=== PATIENT | female | born 1990 | race American Indian/Alaskan Native ===

== ENCOUNTER 2017-12-02 22:31 | Emergency (ER) | payer OTHER ==
[2017-12-02 22:56] VITALS: BP 117/68
[2017-12-02] MEDS ORDERED: TYLENOL ONE (22:58)
[2017-12-02] MEDS ORDERED: TYLENOL PO ONE (22:59)
== END 2017-12-02 23:00 | disposition left against medical advice (07) ==
LOC: ED 22:31
DX: J02.9 Acute pharyngitis, unspecified (principal); H92.01 Otalgia, right ear; Z53.21 Procedure and treatment not carried out due to patient leaving prior to being seen by health care provider
CPT/HCPCS: 87116; 87430

== ENCOUNTER 2018-09-10 08:14 | Emergency (ER) | payer MEDICAID ==
[2018-09-10 08:33] VITALS: BP 127/74
--- NOTE | 2018-09-10 09:18 | Emergency Department Report ---
ED General Adult HPI - General Chief complaint: Dyspnea/Respdistress Stated complaint: 10WKS /SOB/BOTH L R SIDE PAIN Time Seen by Provider: 09/10/18 09:12 Source: patient Mode of arrival: Ambulatory Limitations: No Limitations - History of Present Illness Initial comments: Patient is a 27-year-old asthmatic female who is presenting with bilateral lower back crampiness. Patient states that it feels like a charley horse". Patient is 10 weeks has a history of low potassium and should be on potassium replacement however she's been noncompliant. Patient denies any dysuria or urinary frequency vaginal bleeding or vaginal discharge. Patient states that her lower abdominal and lower back crampiness worse when moving. States that sh pj does have some discomfort in the lower back which she takes a deep breath as well. Patient states that at its most severe is 10 out of 10 and it feels as though her muscles in the lower back are andreina all at once. States that she has some pain at the arch of the right foot however there is no pain in the calf or thigh at this time. - Related Data Previous Rx's Medication Instructions Recorded Last Taken Type Nitrofurantoin [place]/M-Cryst 100 mg PO Q12HR #14 capsule 09/10/18 Unknown Rx [Macrobid CAP] Allergies Allergy/AdvReac Type Severity Reaction Status Date / Time No Known Allergies Allergy Verified 09/10/18 08:30 ED Review of Systems ROS: Stated complaint: 10WKS /SOB/BOTH L R SIDE PAIN Other details as noted in HPI Comment: All other systems reviewed and negative ED Past Medical Hx - Past Medical History Previous Medical History?: Yes Additional medical history: iron deficiency anemia - Surgical History Past Surgical History?: Yes Additional Surgical History: c section x 3 - Social History Smoking Status: Never Smoker Substance Use Type: None - Medications Home Medications: Home Medications Medication Instructions Recorded Confirmed Last Taken Type Nitrofurantoin [place]/M-Cryst 100 mg PO Q12HR #14 capsule 09/10/18 Unknown Rx [Macrobid CAP] ED Physical Exam - General Limitations: No Limitations General appearance: alert, in no apparent distress - Head Head exam: Present: atraumatic, normocephalic - Eye Eye exam: Present: normal appearance - ENT ENT exam: Present: mucous membranes moist - Neck Neck exam: Present: normal inspection - Respiratory Respiratory exam: Present: normal lung sounds bilaterally. Absent: respiratory distress, wheezes, rales, rhonchi - Cardiovascular Cardiovascular Exam: Present: regular rate, normal rhythm. Absent: systolic murmur, diastolic murmur, rubs, gallop - GI/Abdominal GI/Abdominal exam: Present: soft, normal bowel sounds. Absent: distended, tenderness, guarding, rebound - Extremities Exam Extremities exam: Present: normal inspection, full ROM, normal capillary refill. Absent: tenderness, calf tenderness - Back Exam Back exam: Present: normal inspection - Neurological Exam Neurological exam: Present: alert, oriented X3 - Psychiatric Psychiatric exam: Present: normal affect, normal mood - Skin Skin exam: Present: warm, dry, intact, normal color. Absent: rash ED Course Vital Signs 09/10/18 08:30 Temperature 97.8 F Pulse Rate 94 H Respiratory 18 Rate Blood Pressure 127/74 O2 Sat by Pulse 99 Oximetry ED Medical Decision Making - Lab Data Result diagrams: 09/10/18 09:26 Lab Results 09/10/18 09/10/18 Range/Units 09:26 10:23 Sodium 138 (137-145) mmol/L Potassium 4.2 (3.6-5.0) mmol/L Chloride 98.6 (98-107) mmol/L Carbon Dioxide 25 (22-30) mmol/L Anion Gap 19 mmol/L BUN 16 (7-17) mg/dL Creatinine 0.6 L (0.7-1.2) mg/dL Estimated GFR > 60 ml/min BUN/Creatinine Ratio 27 % Glucose 93 (65-100) mg/dL Calcium 9.9 (8.4-10.2) mg/dL Magnesium 1.70 (1.7-2.3) mg/dL Urine Color Yellow (Yellow) Urine Turbidity Slightly-cloudy (Clear) Urine pH 5.0 (5.0-7.0) Ur Specific [place] 1.031 H (1.003-1.030) Urine Protein 30 mg/dl (Negative) mg/dL Urine Glucose (UA) Neg (Negative) mg/dL Urine Ketones 80 (Negative) mg/dL Urine Blood Neg (Negative) Urine Nitrite Neg (Negative) Urine Bilirubin Neg (Negative) Urine Urobilinogen 2.0 (<2.0) mg/dL Ur Leukocyte Esterase Lg (Negative) Urine WBC (Auto) 46.0 H (0.0-6.0) /HPF Urine RBC (Auto) 12.0 (0.0-6.0) /HPF U Epithel Cells (Auto) 5.0 (0-13.0) /HPF Urine Mucus 3+ /HPF Urine Yeast (Budding) 1+ /HPF - Medical Decision Making Patient's potassium was within normal limits. Patient does however have a u rinary tract infection be treated with Macrobid. Patient discharged home. Critical care attestation.: If time is entered above; I have spent that time in minutes in the direct care of this critically ill patient, excluding procedure time. ED Disposition Clinical Impression: UTI in Qualifiers: Trimester: first trimester Qualified Code(s): O23.41 - Unspecified infection of urinary tract in , first trimester Disposition: DC- TO HOME OR SELFCARE Is pt being admited?: No Does the pt Need Aspirin: No Condition: Stable Instructions: Urinary Tract Infection in Women (ED) Time of Disposition: 10:49
[2018-09-10 09:53] LABS: BUN/Creatinine Ratio 27; Blood Urea Nitrogen 16 mg/dL (7-17); Calcium 9.9 mg/dL (8.4-10.2); Hemolysis Index 0
[2018-09-10 10:36] LABS: Bilirubin,Urine NEG (Negative); Blood,Urine NEG (Negative); Color,Urine Yellow (Yellow); Mucus,Urine 3+ /HPF
[2018-09-10] MEDS ORDERED: MACROBID PO ONE (10:49)
== END 2018-09-10 11:00 | disposition home or self-care (01) ==
LOC: ED 08:14
DX: O23.41 Unspecified infection of urinary tract in pregnancy, first trimester (principal); Z3A.10 10 weeks gestation of pregnancy
CPT/HCPCS: 36415; 80048; 81001; 83735; 99283

== ENCOUNTER 2018-09-13 11:22 | Emergency (ER) | payer MEDICAID ==
--- NOTE | 2018-09-13 11:27 | Emergency Department Report ---
Blank Doc - Documentation Documentation: This is a 27-year-old female that presents with left foot pain s/p rock kenia montano. Unsure of any injuries. This initial assessment/diagnostic orders/clinical plan/treatment(s) is/are subject to change based on patient's health status, clinical progression and re- assessment by fellow clinical providers in the ED. Further treatment and workup at subsequent clinical providers discretion. Patient/guardians urged not to elope from the ED as their condition may be serious if not clinically assessed and managed. Initial orders include: 1- Patient sent to [facility] for further evaluation and treatment 2- xray
[2018-09-13] MEDS ORDERED: IBUPROFEN PO ONE (12:11)
--- NOTE | 2018-09-13 12:21 | Emergency Department Report ---
HPI - General Chief Complaint: Extremity Injury, Lower Time Seen by Provider: 09/13/18 11:26 - HPI HPI: 27-year-old -N[place]alese female presents to the emergency department with a few days of pain to the top and outside of her left foot. She denies any trauma or injury. The pain worsens when she is bearing weight and ambulating. She denies any swelling, skin color change, rash or lesions. She has not taken anything for her symptoms prior to presentation. She has a past medical history of anemia. ED Past Medical Hx - Past Medical History Previous Medical History?: Yes Additional medical history: iron deficiency anemia - Surgical History Past Surgical History?: Yes Additional Surgical History: c section x 3 - Social History Smoking Status: Never Smoker - Medications Home Medications: Home Medications Medication Instructions Recorded Confirmed Last Taken Type Nitrofurantoin [place]/M-Cryst 100 mg PO Q12HR #14 capsule 09/10/18 Unknown Rx [Macrobid CAP] ED Review of Systems ROS: Stated complaint: (L) LEFT FOOT PAIN Other details as noted in HPI Comment: All other systems reviewed and negative Cardiovascular: denies: edema Musculoskeletal: arthralgia. denies: joint swelling Skin: denies: rash, lesions Neurological: denies: numbness, paresthesias Physical Exam - Physical Exam Vital Signs: Vital Signs 09/13/18 11:26 Temperature 97.6 F Pulse Rate 104 H Respiratory 18 Rate Blood Pressure 127/83 O2 Sat by Pulse 100 Oximetry Physical Exam: GENERAL: The patient is well-developed well-nourished. HENT: Normocephalic. Atraumatic. Patient has moist mucous membranes. EYES: Extraocular motions are intact. NECK: Supple. Trachea is midline. CHEST/LUNGS: Clear to auscultation. There is no respiratory distress noted. HEART/CARDIOVASCULAR: Regular. There is no tachycardia. There is no murmur. ABDOMEN: There is no abdominal distention. SKIN: Skin is warm and dry. NEURO: The patient is awake, alert, and oriented. The patient is cooperative. The patient has normal speech. MUSCULOSKELETAL: There is some tenderness to palpation to the left lateral and dorsal foot. No obvious deformity. +2 over 4 dorsalis pedis pulse to the affected left foot. There is no limitation range of motion. ED Course Vital Signs 09/13/18 11:26 Temperature 97.6 F Pulse Rate 104 H Respiratory 18 Rate Blood Pressure 127/83 O2 Sat by Pulse 100 Oximetry ED Medical Decision Making - Radiology Data Radiology results: image reviewed interpreted by me: X-ray of the left foot does not show any fracture, dislocation, or any acute process. - Medical Decision Making This patient presents to the emergency department with a complaint of some atraumatic left foot pain. X-ray does not show any fracture, dislocation or any other acute process. She appears neurovascularly intact. There is no swelling or skin color change. It appears low suspicion for any cellulitis or gout. It is possible that she has some level of tendinitis or repetitive stress injury. She was given a postop shoe and some crutches and will try to be nonweightbearing for a few days. She will use rest, ice, compression and elevation. She was given some referrals for local loss control consultant. She will return to the ER with any worsening of her symptoms or any acute distress. - Differential Diagnosis tendinitis, gout, occult fracture Critical Care Time: No Critical care attestation.: If time is entered above; I have spent that time in minutes in the direct care of this critically ill patient, excluding procedure time. ED Disposition Clinical Impression: Left foot pain Disposition: DC-01 TO HOME OR SELFCARE Is pt being admited?: No Condition: Stable Instructions: Arthralgia (ED) Additional Instructions: Please follow-up with your primary care physician. I am giving you a referral for two different local podiatrists/foot doctors to follow up regarding your left foot pain. Return to the emergency Department with any worsening of your symptoms or any acute distress. Referrals: ALDA VALENZUELA MD [Staff Physician] - 3-5 Days JOYCE WALKER DPM [Staff Physician] - 3-5 Days
[2018-09-13 13:30] VITALS: BP 121/78
--- NOTE | 2018-09-13 13:57 | XRay Report ---
LEFT FOOT, 3 views: History: Foot pain. The bony architecture is intact. Bony alignment is normal. No soft tissue abnormalities are seen. The joint spaces appear preserved. IMPRESSION: Unremarkable left foot.
== END 2018-09-13 13:16 | disposition home or self-care (01) ==
LOC: ED 11:22
DX: M79.672 Pain in left foot (principal)

== ENCOUNTER 2020-06-29 09:44 | Emergency (ER) | payer MEDICAID, OTHER ==
--- NOTE | 2020-06-29 10:27 | Event Note ---
ED Screening Note Date of service: 06/29/20 Time: 10:21 ED Screening Note: Patient complains of chest pain, abdominal pain, nausea and vomiting since last night Patient states she was diagnosed with ectopic yesterday at [facility] and given " a pill" and told to follow-up with [facility] here This initial assessment/diagnostic orders/clinical plan/treatment(s) is/are subject to change based on patients health status, clinical progression and re- assessment by fellow clinical providers in the ED. Further treatment and workup at subsequent clinical providers discretion. Patient/guardian urged not to elope from the ED as their condition may be serious if not clinically assessed and managed. Initial orders include: Labs EKG Chest x-ray
--- NOTE | 2020-06-29 11:21 | Ultrasound Report ---
ULTRASOUND OBSTETRIC INDICATION / CLINICAL INFORMATION: abdominal pain, ectopic , given methotrex. Clinical Gestational Age (GA): 11.5 weeks.days TECHNIQUE: Transabdominal. COMPARISON: None available. FINDINGS: UTERUS: Measures 10.0 x 3.7 x 5.2 cm with 8 mm endometrial thickness in this premenopausal patient. N o intrauterine gestation is identified. Otherwise satisfactory appearance. ADNEXA: 1.5 cm cystic focus at the left ovary. Right ovary demonstrates no significant abnormality. FREE FLUID: None. ADDITIONAL FINDINGS: None. IMPRESSION: 1. No intrauterine gestation identified. 1.5 cm cystic focus at the left ovary. Recommend correlation with beta hCG and further follow-up/evaluation as warranted. 2. No pelvic free fluid. Signer Name: Nathanael Harden MD Signed: 06/29/2020 11:16 AM Workstation Name: [id number]
[2020-06-29 11:32] LABS: Basophils % (Auto) 0.5 % (0.0-1.8); Eosinophils % (Auto) 0.1 % (0.0-4.3); Hematocrit 39.1 % (30.3-42.9); Lymphocytes # (Auto) 0.6 K/mm3 (1.2-5.4); Lymphocytes % (Auto) 7.3 % (13.4-35.0); Mean Corpuscular HGB Conc 33 % (30-34); Mean Corpuscular Volume 83 fl (79-97); Monocytes # (Auto) 0.2 K/mm3 (0.0-0.8); Monocytes % (Auto) 2.6 % (0.0-7.3); Platelet Count 294 K/mm3 (140-440); Red Blood Count 4.72 M/mm3 (3.65-5.03); Red Cell Distribution Width 15.5 % (13.2-15.2)
[2020-06-29] MEDS ORDERED: ONDANSETRON 4 MG/2 ML INJ IV ONE (11:55)
[2020-06-29] MEDS ORDERED: diphenhydrAMINE 50 MG/ML VIAL IV ONE (11:55)
[2020-06-29] MEDS ORDERED: fentaNYL 100 MCG/2 ML INJ IV ONE (11:55)
--- NOTE | 2020-06-29 11:58 | Emergency Department Report ---
HPI - General Chief Complaint: Anxiety Time Seen by Provider: 06/29/20 10:19 - [facility] HPI: Room 2 The patient is a 29-year-old female present with a chief complaint of abdominal pain chest pain. Patient states yesterday she developed pain in her chest and epigastric region has been sharp and constant in nature. Patient admits to nausea vomiting and diarrhea with her pain. Patient denies dysuria or hematuria. Patient denies history of cough or fever. Patient gives her pain a score of "20"/10. Patient also complains of having muscle spasms "all over." ED Past Medical Hx - Past Medical History Previous Medical History?: Yes Additional medical history: iron deficiency anemia, Tubal - Surgical History Past Surgical History?: Yes Additional Surgical History: c section x 3 - Family History Family history: no significant - Social History Smoking Status: Never Smoker Substance Use Type: None (Denies illicit drug use) - Medications Home Medications: Home Medications Medication Instructions Recorded Confirmed Last Taken Type Nitrofurantoin [place]/M-Cryst 100 mg PO Q12HR #14 capsule 09/10/18 Unknown Rx [Macrobid CAP] Ciprofloxacin HCl 500 mg PO BID #14 tablet 06/29/20 Unknown Rx traMADoL [Ultram] 50 mg PO Q6HR PRN #10 tablet 06/29/20 Unknown Rx ED Review of Systems ROS: Stated complaint: HEART HURTS Other details as noted in HPI Constitutional: denies: fever Eyes: denies: eye pain ENT: denies: throat pain Respiratory: no symptoms reported Cardiovascular: chest pain Endocrine: no symptoms reported Gastrointestinal: abdominal pain, nausea, vomiting, diarrhea Genitourinary: denies: dysuria, hematuria Musculoskeletal: myalgia Neurological: denies: headache Physical Exam - Physical Exam Vital Signs: Vital Signs 06/29/20 10:18 Temperature 98.3 F Pulse Rate 71 Respiratory 26 H Rate Blood Pressure 138/93 O2 Sat by Pulse 97 Oximetry Physical Exam: GENERAL: The patient is well-developed well-nourished female standing in room leaning over on the counter wearing only a T-shirt. [] HEENT: Normocephalic. Atraumatic. Extraocular motions are intact. Patient has moist mucous membranes. NECK: Supple. Trachea midline CHEST/LUNGS: Clear to auscultation. There is no respiratory distress noted. HEART/CARDIOVASCULAR: Regular. There is no tachycardia. There is no gallop rub or murmur. ABDOMEN: Abdomen is soft, and nontender to palpation with stethoscope however patient complains of tenderness when palpated manually. Patient has normal bowel sounds. There is no abdominal distention. SKIN: There is no rash. There is no edema. There is no diaphoresis. NEURO: The patient is awake, alert, and oriented. The patient is cooperative. The patient has normal speech and gait. MUSCULOSKELETAL: There is no evidence of acute injury. ED Course Vital Signs 06/29/20 10:18 Temperature 98.3 F Pulse Rate 71 Respiratory 26 H Rate Blood Pressure 138/93 O2 Sat by Pulse 97 Oximetry ED Medical Decision Making - Lab Data Result diagrams: 06/29/20 11:12 06/29/20 11:12 Laboratory Tests 06/29/20 06/29/20 06/29/20 11:12 11:12 11:12 WBC 7.6 RBC 4.72 Hgb 13.0 Hct 39.1 MCV 83 MCH 28 MCHC 33 RDW 15.5 H Plt Count 294 Lymph % (Auto) 7.3 L [place] % (Auto) 2.6 Eos % (Auto) 0.1 Baso % (Auto) 0.5 Lymph # (Auto) 0.6 L [place] # (Auto) 0.2 Eos # (Auto) 0.0 Baso # (Auto) 0.0 Seg Neutrophils % 89.5 H Seg Neutrophils # 6.8 D-Dimer Sodium 140 Potassium 3.6 Chloride 104.2 Carbon Dioxide 22 Anion Gap 17 BUN 8 Creatinine 0.5 L Estimated GFR > 60 BUN/Creatinine Ratio 16 Glucose 150 H Calcium 9.8 Total Bilirubin 0.80 AST 21 ALT 26 Alkaline Phosphatase 55 Troponin T < 0.010 Total Protein 7.6 Albumin 4.8 Albumin/Globulin Ratio 1.7 Lipase 19 HCG, Quant Urine Color Urine Turbidity Urine pH Ur Specific [place] Urine Protein Urine Glucose (UA) Urine Ketones Urine Blood Urine Nitrite Urine Bilirubin Urine Urobilinogen Ur Leukocyte Esterase Urine WBC (Auto) Urine RBC (Auto) U Epithel Cells (Auto) Urine Mucus 06/29/20 06/29/20 06/29/20 11:12 12:02 13:26 WBC RBC Hgb Hct MCV MCH MCHC RDW Plt Count Lymph % (Auto) [place] % (Auto) Eos % (Auto) Baso % (Auto) Lymph # (Auto) [place] # (Auto) Eos # (Auto) Baso # (Auto) Seg Neutrophils % Seg Neutrophils # D-Dimer 198.13 Sodium Potassium Chloride Carbon Dioxide Anion Gap BUN Creatinine Estimated GFR BUN/Creatinine Ratio Glucose Calcium Total Bilirubin AST ALT Alkaline Phosphatase Troponin T Total Protein Albumin Albumin/Globulin Ratio Lipase HCG, Quant < 2 Urine Color Yellow Urine Turbidity Slightly-cloudy Urine pH 8.0 H Ur Specific [place] 1.030 Urine Protein 100 mg/dl Urine Glucose (UA) Neg Urine Ketones 80 Urine Blood Neg Urine Nitrite Neg Urine Bilirubin Neg Urine Urobilinogen < 2.0 Ur Leukocyte Esterase Sm Urine WBC (Auto) 12.0 H Urine RBC (Auto) 15.0 U Epithel Cells (Auto) 4.0 Urine Mucus 2+ - EKG Data -: EKG Interpreted by Me EKG shows normal: sinus rhythm Rate: normal - EKG Data When compared to previous EKG there are: previous EKG unavailable Interpretation: nonspecific ST-T wave al[place] - Radiology Data Radiology results: report reviewed (Chest x-ray, pelvic ultrasound, CT abdomen pelvis), image reviewed (Chest x-ray, pelvic ultrasound, CT abdomen pelvis) interpreted by me: Chest x-ray-no focal infiltrates, no pneumothorax. No foreign body seen XR chest 1V ap INDICATION / CLINICAL INFORMATION: chest pain. COMPARISON: None available. FINDINGS: SUPPORT DEVICES: None. HEART /PULMONARY VASCULATURE: No significant abnormality. LUNGS / PLEURA: No significant pulmonary or pleural abnormality. No pneumothorax. ADDITIONAL FINDINGS: No significant additional findings. IMPRESSION: 1. No acute findings. Signer Name: Vern Magana MD Signed: 06/29/2020 12:04 PM Workstation Name: [id number] ULTRASOUND OBSTETRIC INDICATION / CLINICAL INFORMATION: abdominal pain, ectopic , given methotrex. Clinical Gestational Age (GA): 11.5 weeks.days TECHNIQUE: Transabdominal. COMPARISON: None available. FINDINGS: UTERUS: Measures 10.0 x 3.7 x 5.2 cm with 8 mm endometrial thickness in this premenopausal patient. No intrauterine gestation is identified. Otherwise satisfactory appearance. ADNEXA: 1.5 cm cystic focus at the left ovary. Right ovary demonstrates no significant abnormality. FREE FLUID: None. ADDITIONAL FINDINGS: None. IMPRESSION: 1. No intrauterine gestation identified. 1.5 cm cystic focus at the left ovary. Recommend correlation with beta hCG and further follow-up/evaluation as warranted. 2. No pelvic free fluid. Signer Name: Nathanael Harden MD Signed: 06/29/2020 10:16 AM Workstation Name: [id number] CT ABDOMEN AND PELVIS WITH CONTRAST INDICATION / CLINICAL INFORMATION: Diffuse abdominal pain. TECHNIQUE: Axial CT images were obtained through the abdomen and pelvis after IV contrast. All CT scans at this location are performed using CT dose reduction for ALARA by means of automated exposure control. COMPARISON: None available. FINDINGS: LOWER CHEST: No significant abnormality LIVER: No significant abnormality GALLBLADDER/BILIARY TREE: No significant abnormality PANCREAS: No significant abnormality SPLEEN: No significant abnormality ADRENALS: No significant abnormality KIDNEYS / URETER: No significant abnormality URINARY BLADDER: Bladder is partially decompressed, though grossly unremarkable. REPRODUCTIVE ORGANS: 2 ligation clips. No significant abnormality STOMACH / SMALL BOWEL: Stomach and small bowel are normal in caliber. No evidence of bowel inflammation. COLON: The colon is unremarkable. The appendix is normal in caliber. LYMPH NODES: No significant adenopathy. VASCULATURE: No significant abnormality. OTHER: No free air, free fluid, or focal fluid collection is identified. SKELETAL SYSTEM: No acute osseous findings. IMPRESSION: No acute abnormality of the abdomen or pelvis. Signer Name: Vern Magana MD Signed: 06/29/2020 2:45 PM Workstation Name: [id number] - Differential Diagnosis Anxiety, gastritis, gastroenteritis, partial small bowel obstruction, PE Critical care attestation.: If time is entered above; I have spent that time in minutes in the direct care of this critically ill patient, excluding procedure time. ED Disposition Clinical Impression: Abdominal pain, Atypical chest pain, UTI (urinary tract infection) Disposition: TO HOME OR SELFCARE Is pt being admited?: No Does the pt Need Aspirin: No Condition: Stable Instructions: Nonspecific Chest Pain, Adult Additional Instructions: Return to the emergency department should you develop worsening symptoms, inability to tolerate food or liquids, high fever or any other concerns Prescriptions: Ciprofloxacin HCl 500 mg PO BID #14 tablet traMADoL [Ultram] 50 mg PO Q6HR PRN #10 tablet PRN Reason: Pain Referrals: PRIMARY CAREMD [Primary Care Provider] - 3-5 Days ИВАН ALEMAN MD [Staff Physician] - 3-5 Days Time of Disposition: 16:05
[2020-06-29 12:00] LABS: Alanine Aminotransferase 26 units/L (7-56); Albumin 4.8 g/dL (3.9-5); Blood Urea Nitrogen 8 mg/dL (7-17); Calcium 9.8 mg/dL (8.4-10.2); Hemolysis Index 0
[2020-06-29 12:04] LABS: BUN/Creatinine Ratio 16
--- NOTE | 2020-06-29 13:09 | XRay Report ---
XR chest 1V ap INDICATION / CLINICAL INFORMATION: chest pain. COMPARISON: None available. FINDINGS: SUPPORT DEVICES: None. HEART /PULMONARY VASCULATURE: No significant abnormality. LUNGS / PLEURA: No significant pulmonary or pleural abnormality. No pneumothorax. ADDITIONAL FINDINGS: No significant additional findings. IMPRESSION: 1. No acute findings. Signer Name: Vern Magana MD Signed: 06/29/2020 1:04 PM Workstation Name: [id number]
[2020-06-29 14:21] LABS: Bilirubin,Urine NEG (Negative); Blood,Urine NEG (Negative); Color,Urine Yellow (Yellow); Mucus,Urine 2+ /HPF; Urobilinogen,Urine < 2.0 mg/dL (<2.0)
[2020-06-29] MEDS ORDERED: METOCLOPRAMIDE 10 MG/2 ML INJ IV ONE (14:58)
--- NOTE | 2020-06-29 15:49 | Cat Scan Report ---
CT ABDOMEN AND PELVIS WITH CONTRAST INDICATION / CLINICAL INFORMATION: Diffuse abdominal pain. TECHNIQUE: Axial CT images were obtained through the abdomen and pelvis after IV contrast. All CT sc ans at this location are performed using CT dose reduction for ALARA by means of automated exposure c ontrol. COMPARISON: None available. FINDINGS: LOWER CHEST: No significant abnormality LIVER: No significant abnormality GALLBLADDER/BILIARY TREE: No significant abnormality PANCREAS: No significant abnormality SPLEEN: No significant abnormality ADRENALS: No significant abnormality KIDNEYS / URETER: No significant abnormality URINARY BLADDER: Bladder is partially decompressed, though grossly unremarkable. REPRODUCTIVE ORGANS: 2 ligation clips. No significant abnormality STOMACH / SMALL BOWEL: Stomach and small bowel are normal in caliber. No evidence of bowel inflammati on. COLON: The colon is unremarkable. The appendix is normal in caliber. LYMPH NODES: No significant adenopathy. VASCULATURE: No significant abnormality. OTHER: No free air, free fluid, or focal fluid collection is identified. SKELETAL SYSTEM: No acute osseous findings. IMPRESSION: No acute abnormality of the abdomen or pelvis. Signer Name: Vern Magana MD Signed: 06/29/2020 3:45 PM Workstation Name: [id number]
[2020-06-29] MEDS ORDERED: traMADol 50 MG TAB PO ONE (16:08)
[2020-06-29 16:27] VITALS: BP 131/79
== END 2020-06-29 16:33 | disposition home or self-care (01) ==
LOC: ED 09:44
DX: N39.0 Urinary tract infection, site not specified (principal); R07.89 Other chest pain; Z79.899 Other long term (current) drug therapy
CPT/HCPCS: 36415; 71045; 74177; 76801; 80053; 81001; 83690; 84484; 84702; 85025; 85379; 87086; 93005; 96374; 96375; 99285; J1200; J2405; J2765; J3010; Q9967